=== PATIENT | male | born 1940 | race Caucasian/White ===

== ENCOUNTER 2022-12-14 20:16 | Emergency (ER) | payer OTHER ==
[~2022-12-14] VITALS: Ht 175.3 cm; Wt 81.6 kg
[2022-12-14 20:28] VITALS: BP_SYST 146
[2022-12-14 23:05] LABS: BILIRUBIN,URINE NEGATIVE (NEGATIVE); BLOOD, URINE 2+ (NEGATIVE); CLARITY/URINE CLOUDY (CLEAR); COLOR,URINE YELLOW (YELLOW); GLUCOSE,URINE NEGATIVE (NEGATIVE); KETONES,URINE NEGATIVE (NEGATIVE); LEUKOCYTE ESTERASE ,URINE 3+ (NEGATIVE); NITRITE, URINE POSITIVE (NEGATIVE); PH,URINE 6.5 (5.0-8.0); PROTEIN URINE 1+ (NEGATIVE); UROBILINOGEN,URINE 0.2 (0.2-1.0)
[2022-12-14 23:06] LABS: BACTERIA,URINE MANY /HPF (None Seen); WBC,URINE >100 /HPF (0-3)
== END 2022-12-14 22:40 ==
LOC: SED 20:16
DX: R33.9 Retention of urine, unspecified (principal); R10.84 Generalized abdominal pain; K21.9 Gastro-esophageal reflux disease without esophagitis; I10 Essential (primary) hypertension
CPT/HCPCS: 81000; 87086; 99284